=== PATIENT | female | born 1990 | race Caucasian/White ===

== ENCOUNTER 2016-08-21 14:31 | Emergency (ER) | payer OTHER ==
[~2016-08-21] VITALS: Ht 160 cm; Wt 59.0 kg
[~2016-08-21 14:31] MED LIST: ALBUTEROL0.09 MG/A2 INH; AMOXICILLIN500 MG PO; ANAPROX DS550 MG PO; ANTIVERT25 MG PO; ANUSOL-HC25 MG R; ATARAX,VISTARIL50 MG PO; BACTRIM DS 8001 TA1 PO; BENADRYL25 MG PO; BENTYL10 MG PO; CIPRO250 MG PO; CIPRO500 MG PO; CLEOCIN HCL150 MG PO; CLEOCIN150 MG PO; COMPAZINE10 MG PO; FLAGYL250 MG PO; HYDROCODONE BIT1 T11 PO; HYDROXYZINE HCL25 MG PO; LIDEX 0.05% CRE15 GM T; MACROBID100 M1 PO; MEDROL DOSEPAK4 MG PO; MOTRIN800 MG PO; Motrin,Rufen800 MG PO; NAPROSYN500 MG PO; NATURE'S BLEN2000 IU PO; NKHM; NKHM PO; NORCO 325 MG-101 TAB PO; PERCOCET 325 MG1 TA2 PO; PERCOCET 325 MG1 TA5 PO; PERCOCET 325 MG1 TA6 PO; PREDNICOT20 MG PO; PREDNISONE20 M1 PO; PRENATAL1 TA2 PO; ROBITUSSIN AC 110 ML PO; SEPTRA DS 800 M1 TAB PO; SERTRALINE HYDR50 MG PO; TRAMADOL HCL50 MG PO; ULTRAM50 MG PO; VIBRAMYCIN100 MG PO; VICODIN 5/500 505 MG PO; ZITHROMAX Z PA250 MG PO; ZITHROMAX250 MG PO; ZOFRAN ODT4 MG SL; ZOLOFT50 MG PO; Zofran4 MG PO
[2016-08-21] MEDS ORDERED: BACTRIM DS 8001 TA1 PO (15:33)
== END 2016-08-21 16:55 | disposition home or self-care (01) ==
LOC: ED 14:31
DX: N63 Unspecified lump in breast (principal); N64.4 Mastodynia; F17.200 Nicotine dependence, unspecified, uncomplicated; Z90.49 Acquired absence of other specified parts of digestive tract; Z88.1 Allergy status to other antibiotic agents

== ENCOUNTER → 2016-10-01 | Outpatient (CLI) | payer OTHER | END | disposition home or self-care (01) | LOC: RAD 11:21 | DX: M54.5 Low back pain (principal); R20.0 Anesthesia of skin; Z98.51 Tubal ligation status ==

== ENCOUNTER → 2016-10-20 | Outpatient (CLI) | payer OTHER | END | disposition home or self-care (01) | LOC: MAMMO 10-07 09:00 | DX: N63 Unspecified lump in breast (principal) ==

== ENCOUNTER 2016-11-11 12:07 | Emergency (ER) | payer OTHER ==
[~2016-11-11] VITALS: Wt 59.0 kg
[2016-11-11 13:00] LABS: BASO % 0.4 % (0.0-1.0); EOS # 0.1 10*3/uL (0.0-0.4); EOS % 1.1 % (1.0-4.0); HEMATOCRIT 39.1 % (37.0-47.0); HEMOGLOBIN 13.1 g/dl (12.0-16.0); LYMPH # 2.5 10*3/uL (1.3-4.4); LYMPH % 26.7 % (27.0-41.0); MEAN CELL VOLUME 95.1 fl (81.0-99.0); MEAN CORPUSCULAR HGB 31.9 pg (27.0-31.0); MEAN CORPUSCULAR HGB CONC 33.5 g/dl (33.0-37.0); MEAN PLATELET VOLUME 9.9 fl (9.6-12.3); MONO # 0.8 10*3/uL (0.1-1.0); MONO % 8.8 % (3.0-9.0); NEUT # 5.9 10*3/uL (2.3-7.9); NEUT % 62.8 % (47.0-73.0); PLATELET COUNT AUTOMATED 322 10*3/uL (130-400); RED BLOOD COUNT 4.11 10*6/uL (4.10-5.10); RED CELL DISTRI WIDTH 11.9 % (0-14.5); WHITE BLOOD COUNT 9.3 10*3/uL (4.8-10.8)
[2016-11-11 13:09] LABS: PROTHROMBIN TIME 10.1 SECONDS (9.0-12.4)
[2016-11-11 13:16] LABS: C-REACTIVE PROTEIN < 0.29 MG/DL (0-0.3)
[2016-11-11 13:17] LABS: ALBUMIN 3.8 gm/dl (3.1-4.5); ALKALINE PHOSPHATASE 55 U/L (45-117); BILIRUBIN, TOTAL 0.5 mg/dl (0.2-1.0); BUN 8 mg/dl (7-24); CARBON DIOXIDE 27 mmol/L (21-32); CHLORIDE 104 mmol/L (98-107); EST GLOM FILT AFRICAN AMERICAN > 60 ml/min; GLUCOSE 86 mg/dL (65-99); MAGNESIUM 2.2 mg/dL (1.5-2.1); POTASSIUM 4.1 mmol/L (3.5-5.1); SGOT/AST 13 IU/L (3-35); SGPT/ALT 22 U/L (12-78); SODIUM 138 mmol/L (136-145); TOTAL PROTEIN 7.3 gm/dL (6.4-8.2)
[2016-11-11 13:24] LABS: TROPONIN I < 0.015 ng/ml (<0.045)
[2016-11-11 13:47] LABS: BILIRUBIN NEGATIVE (NEGATIVE); BLOOD NEGATIVE (NEGATIVE); CLARITY CLEAR (CLEAR); COLOR YELLOW (YELLOW); GLUCOSE NEGATIVE (NEGATIVE); KETONE NEGATIVE (NEGATIVE); LEUKO ESTERASE NEGATIVE (NEGATIVE); NITRITE NEGATIVE (NEGATIVE); PH 6.5 (5.0-9.0); PROTEIN NEGATIVE (NEGATIVE); SPECIFIC GRAVITY <= 1.005 (1.005-1.030); UROBILINOGEN 0.2 E.U./dl (0.2-1.0)
[2016-11-11 13:53] LABS: EPITHELIAL CELLS 0-2; URINE REFLEX COMMENT NO (NO)
== END 2016-11-11 15:37 | disposition left against medical advice (07) ==
LOC: ED 12:07
PROVIDERS: Student in an Organized Health Care Education/Training Program
DX: R10.13 Epigastric pain (principal); F17.200 Nicotine dependence, unspecified, uncomplicated; Z88.8 Allergy status to other drugs, medicaments and biological substances

== ENCOUNTER → 2016-11-18 | Day surgery (SDC) | payer OTHER | END | disposition home or self-care (01) | LOC: SDC 11-12 11:00 → US 11-12 11:00 → RAD 11-12 11:00 → SDC 03:07 | DX: D24.2 Benign neoplasm of left breast (principal); Z90.49 Acquired absence of other specified parts of digestive tract; Z98.51 Tubal ligation status; Z98.890 Other specified postprocedural states; Z80.0 Family history of malignant neoplasm of digestive organs; F17.210 Nicotine dependence, cigarettes, uncomplicated; Z80.3 Family history of malignant neoplasm of breast; Z88.8 Allergy status to other drugs, medicaments and biological substances ==

== ENCOUNTER → 2016-12-11 | Outpatient (CLI) | payer OTHER ==
[2016-12-11 09:53] LABS: BASO % 0.5 % (0.0-1.0); BILIRUBIN NEGATIVE (NEGATIVE); BLOOD TRACE-INTACT (NEGATIVE); CLARITY CLEAR (CLEAR); COLOR YELLOW (YELLOW); EOS # 0.1 10*3/uL (0.0-0.4); EOS % 1.6 % (1.0-4.0); GLUCOSE NEGATIVE (NEGATIVE); HEMATOCRIT 40.2 % (37.0-47.0); HEMOGLOBIN 13.5 g/dl (12.0-16.0); KETONE NEGATIVE (NEGATIVE); LEUKO ESTERASE NEGATIVE (NEGATIVE); LYMPH # 2.2 10*3/uL (1.3-4.4); LYMPH % 24.7 % (27.0-41.0); MEAN CELL VOLUME 98.3 fl (81.0-99.0); MEAN CORPUSCULAR HGB CONC 33.6 g/dl (33.0-37.0); MEAN PLATELET VOLUME 10.5 fl (9.6-12.3); MONO # 0.7 10*3/uL (0.1-1.0); MONO % 8.4 % (3.0-9.0); NEUT # 5.6 10*3/uL (2.3-7.9); NEUT % 64.5 % (47.0-73.0); NITRITE NEGATIVE (NEGATIVE); PLATELET COUNT AUTOMATED 360 10*3/uL (130-400); RED BLOOD COUNT 4.09 10*6/uL (4.10-5.10); RED CELL DISTRI WIDTH 12.2 % (0-14.5); UROBILINOGEN 0.2 E.U./dl (0.2-1.0); WHITE BLOOD COUNT 8.7 10*3/uL (4.8-10.8)
[2016-12-11 10:01] LABS: EPITHELIAL CELLS 16-20; MUCOUS TRACE; RBC 0-2 rbc/hpf (0-2); WBC 0-2 wbc/hpf (0-5)
[2016-12-11 10:17] LABS: INTERNATIONAL NORM RATIO 0.9 (2.0-3.5)
[2016-12-11 10:19] LABS: BUN 12 mg/dl (7-24); CHLORIDE 106 mmol/L (98-107); CREATININE 0.76 mg/dL (0.55-1.02); POTASSIUM 4.1 mmol/L (3.5-5.1); SODIUM 138 mmol/L (136-145)
== END | disposition home or self-care (01) ==
LOC: LAB 08:33
PROVIDERS: Surgery
DX: N63 Unspecified lump in breast (principal); R79.1 Abnormal coagulation profile

== ENCOUNTER → 2016-12-17 | Day surgery (SDC) | payer OTHER ==
[2016-12-11 08:47] VITALS: BP 104/62
[~2016-12-17] VITALS: Ht 160 cm; Wt 65.8 kg
[~2016-12-17] MED LIST changes: +PERCOCET 5-3251 EACH PO
--- NOTE | ~2016-12-17 | O ---
[place], [place] OPERATIVE NOTE NAME: RAMONA MARK UNIT #: [id number] ROOM: DOCTOR: BART SLATER MD BIRTHDATE: [birth year] DOS: 12/17/2016 PREOPERATIVE DIAGNOSIS: Left breast mass. POSTOPERATIVE DIAGNOSIS: Left breast mass. PROCEDURE: Excision of left breast mass. SURGEON: Bart Slater MD ARMAMENT INSTALLER: MS3. ANESTHESIA: MAC. INDICATIONS: This is a 26-year-old lady with a history of left breast mass at approximately 9 o'clock position who is here for the above-mentioned procedure. The procedure and its complications were explained to the patient in detail preoperatively. Complications that were discussed included, but were not limited to bleeding, infection, hematoma/seroma/abscess formation, prolonged postoperative pain and damage to underlying vital structures. She agreed to proceed. DESCRIPTION OF PROCEDURE: After identifying the patient, the patient was brought to the operating suite and laid in the supine position. After IV sedation was administered, the parts were then painted and draped in the usual sterile fashion and a timeout procedure was called. An incision in the left circumareolar fashion was marked overlying the previous biopsy site, local anesthesia (1% plain lidocaine) were injected over the marked incision. Incision was made with the help of knife and deepened in layers. With tissue around the mass was grasped with the help of an Allis forceps and with the help of electrocautery that was circumferential dissected from the surrounding breast tissue. It was then removed and oriented (short stitch for superior and long stitch for lateral) and sent for histopathological diagnosis. Hemostasis was achieved with the help of electrocautery and saline was used for irrigation. Thereafter, the subcutaneous tissue was approximated with the help of 3-0 Vicryl in a running fashion and the skin edges were approximated with 4-0 Vicryl in a subcuticular running fashion. Dressing was placed. The patient tolerated the procedure well and was taken to the recovery room in stable fashion. There were no complications. Dr. Bart Slater, the attending surgeon, was present throughout the operating case. [place], [place] OPERATIVE NOTE NAME: RAMONA MARK UNIT #: [id number] ROOM: DOCTOR: BART SLATER MD BIRTHDATE: [birth year] Bart Slater MD CM:[facility]:OPERATIVE NOTE 1 07 ABRT SLATER MD 12/17/16 1008 interface
[2016-12-17 08:08] VITALS: BP 110/67
[2016-12-17 08:57] VITALS: BP 88/52
[2016-12-17 09:10] VITALS: BP 95/54
[2016-12-17 09:30] VITALS: BP 104/68
== END | disposition home or self-care (01) ==
LOC: SDC 12-10 11:00
DX: D24.2 Benign neoplasm of left breast (principal); F17.210 Nicotine dependence, cigarettes, uncomplicated; Z98.51 Tubal ligation status; Z90.49 Acquired absence of other specified parts of digestive tract; Z98.890 Other specified postprocedural states; Z80.9 Family history of malignant neoplasm, unspecified

== ENCOUNTER 2017-04-14 11:30 | Emergency (ER) | payer OTHER ==
[~2017-04-14] VITALS: Wt 63.5 kg
[2017-04-14] MEDS ORDERED: MEDROXYPROGESTE10 M1 PO (11:37)
[2017-04-14 11:55] LABS: BASO % 0.4 % (0.0-1.0); EOS # 0.1 10*3/uL (0.0-0.4); EOS % 0.9 % (1.0-4.0); HEMATOCRIT 41.8 % (37.0-47.0); LYMPH # 2.1 10*3/uL (1.3-4.4); LYMPH % 24.3 % (27.0-41.0); MEAN CELL VOLUME 96.3 fl (81.0-99.0); MEAN CORPUSCULAR HGB 32.3 pg (27.0-31.0); MEAN CORPUSCULAR HGB CONC 33.5 g/dl (33.0-37.0); MEAN PLATELET VOLUME 10.1 fl (9.6-12.3); MONO # 0.5 10*3/uL (0.1-1.0); MONO % 5.9 % (3.0-9.0); NEUT # 5.8 10*3/uL (2.3-7.9); NEUT % 68.1 % (47.0-73.0); PLATELET COUNT AUTOMATED 372 10*3/uL (130-400); RED BLOOD COUNT 4.34 10*6/uL (4.10-5.10); RED CELL DISTRI WIDTH 11.8 % (0-14.5); WHITE BLOOD COUNT 8.5 10*3/uL (4.8-10.8)
[2017-04-14 12:06] LABS: BILIRUBIN NEGATIVE (NEGATIVE); BLOOD NEGATIVE (NEGATIVE); CLARITY SL CLOUDY (CLEAR); COLOR YELLOW (YELLOW); GLUCOSE NEGATIVE (NEGATIVE); KETONE NEGATIVE (NEGATIVE); LEUKO ESTERASE NEGATIVE (NEGATIVE); NITRITE NEGATIVE (NEGATIVE); PH 7.5 (5.0-9.0); UROBILINOGEN 0.2 E.U./dl (0.2-1.0)
[2017-04-14 12:10] LABS: ALBUMIN 4.3 gm/dl (3.1-4.5); ALKALINE PHOSPHATASE 59 U/L (45-117); BUN 7 mg/dl (7-24); CHLORIDE 104 mmol/L (98-107); CREATININE 0.82 mg/dL (0.55-1.02); POTASSIUM 3.8 mmol/L (3.5-5.1); SGOT/AST 14 IU/L (3-35); SGPT/ALT 20 U/L (12-78); SODIUM 140 mmol/L (136-145)
[2017-04-14 12:22] LABS: BACTERIA 1+; WBC 0-2 wbc/hpf (0-5)
== END 2017-04-14 14:14 | disposition home or self-care (01) ==
LOC: ED 11:30
PROVIDERS: Nurse Practitioner Family
DX: R10.31 Right lower quadrant pain (principal); F17.200 Nicotine dependence, unspecified, uncomplicated; Z98.51 Tubal ligation status; Z88.1 Allergy status to other antibiotic agents; Z88.5 Allergy status to narcotic agent; Z88.6 Allergy status to analgesic agent

== ENCOUNTER 2017-06-27 20:17 | Emergency (ER) | payer OTHER ==
[~2017-06-27] VITALS: Ht 160 cm; Wt 68.0 kg
[~2017-06-27 20:17] MED LIST changes: +MEDROXYPROGESTE10 M1 PO
[2017-06-27] MEDS ORDERED: CYCLOBENZAPRINE10 MG PO (22:07)
[2017-06-27] MEDS ORDERED: MEDROL DOSEPAK4 MG PO (22:07)
[2017-06-27] MEDS ORDERED: NAPROSYN500 MG PO (22:07)
== END 2017-06-27 22:15 | disposition home or self-care (01) ==
LOC: ED 20:17
DX: S16.1XXA Strain of muscle, fascia and tendon at neck level, initial encounter (principal); S00.83XA Contusion of other part of head, initial encounter; S05.12XA Contusion of eyeball and orbital tissues, left eye, initial encounter; S05.11XA Contusion of eyeball and orbital tissues, right eye, initial encounter; F17.200 Nicotine dependence, unspecified, uncomplicated; Z88.1 Allergy status to other antibiotic agents; Z88.6 Allergy status to analgesic agent; V00.131A Fall from skateboard, initial encounter; Y93.51 Activity, roller skating (inline) and skateboarding; Y92.89 Other specified places as the place of occurrence of the external cause; Y99.8 Other external cause status

== ENCOUNTER 2017-07-25 10:45 | Emergency (ER) | payer OTHER ==
[~2017-07-25] VITALS: Ht 160 cm; Wt 68.0 kg
[~2017-07-25 10:45] MED LIST changes: +CYCLOBENZAPRINE10 MG PO
[2017-07-25] MEDS ORDERED: CILOXAN 5 ML5 ML OPH (11:46)
== END 2017-07-25 11:48 | disposition home or self-care (01) ==
LOC: ED 10:45
DX: H10.89 Other conjunctivitis (principal); B96.89 Other specified bacterial agents as the cause of diseases classified elsewhere; Z98.51 Tubal ligation status; Z98.890 Other specified postprocedural states; Z88.1 Allergy status to other antibiotic agents; Z88.6 Allergy status to analgesic agent; Z88.5 Allergy status to narcotic agent

== ENCOUNTER 2017-09-24 17:50 | Emergency (ER) | payer OTHER ==
[~2017-09-24] VITALS: Wt 63.5 kg
[~2017-09-24 17:50] MED LIST changes: +CILOXAN 5 ML5 ML OPH
[2017-09-24 18:24] LABS: BASO % 0.3 % (0.0-1.0); EOS # 0.1 10*3/uL (0.0-0.4); EOS % 0.4 % (1.0-4.0); HEMATOCRIT 37.1 % (37.0-47.0); HEMOGLOBIN 12.8 g/dl (12.0-16.0); LYMPH # 2.6 10*3/uL (1.3-4.4); LYMPH % 21.3 % (27.0-41.0); MEAN CELL VOLUME 94.4 fl (81.0-99.0); MEAN CORPUSCULAR HGB 32.6 pg (27.0-31.0); MEAN CORPUSCULAR HGB CONC 34.5 g/dl (33.0-37.0); MEAN PLATELET VOLUME 10.4 fl (9.6-12.3); MONO # 1.2 10*3/uL (0.1-1.0); MONO % 9.5 % (3.0-9.0); NEUT # 8.4 10*3/uL (2.3-7.9); NEUT % 68.3 % (47.0-73.0); PLATELET COUNT AUTOMATED 356 10*3/uL (130-400); RED BLOOD COUNT 3.93 10*6/uL (4.10-5.10); RED CELL DISTRI WIDTH 11.5 % (0-14.5); WHITE BLOOD COUNT 12.4 10*3/uL (4.8-10.8)
[2017-09-24 18:36] LABS: ACT PARTIAL THROMBO TIME 24.9 SECONDS (20.8-31.5)
[2017-09-24 18:40] LABS: ALBUMIN 4.1 gm/dl (3.1-4.5); ALKALINE PHOSPHATASE 63 U/L (45-117); BUN 12 mg/dl (7-24); CHLORIDE 108 mmol/L (98-107); CREATININE 0.82 mg/dL (0.55-1.02); POTASSIUM 3.6 mmol/L (3.5-5.1); SGOT/AST 13 IU/L (3-35); SGPT/ALT 18 U/L (12-78); SODIUM 139 mmol/L (136-145); TOTAL PROTEIN 7.3 gm/dL (6.4-8.2)
[2017-09-24 19:58] LABS: BILIRUBIN NEGATIVE (NEGATIVE); CLARITY SL CLOUDY (CLEAR); COLOR YELLOW (YELLOW); GLUCOSE NEGATIVE (NEGATIVE); KETONE NEGATIVE (NEGATIVE)
[2017-09-24 19:59] LABS: BLOOD NEGATIVE (NEGATIVE); UROBILINOGEN 0.2 E.U./dl (0.2-1.0)
[2017-09-24 20:00] LABS: LEUKO ESTERASE TRACE (NEGATIVE); NITRITE NEGATIVE (NEGATIVE)
[2017-09-24 20:05] LABS: BACTERIA 1+; EPITHELIAL CELLS TNTC; MUCOUS TRACE; RBC 0-2 rbc/hpf (0-2)
[2017-09-24] MEDS ORDERED: CARAFATE1 G1 PO (20:25)
[2017-09-24] MEDS ORDERED: ZANTAC 150150 MG PO (20:25)
[2017-09-24] MEDS ORDERED: ZOFRAN4 MG PO (20:25)
[2017-09-24] MEDS ORDERED: DICYCLOMINE HCL10 MG PO (20:25)
== END 2017-09-24 21:11 | disposition home or self-care (01) ==
LOC: ED 17:50
PROVIDERS: Nurse Practitioner Family
DX: R10.84 Generalized abdominal pain (principal); Z88.5 Allergy status to narcotic agent; G47.00 Insomnia, unspecified

== ENCOUNTER 2017-11-14 12:13 | Emergency (ER) | payer OTHER ==
[~2017-11-14] VITALS: Ht 160 cm; Wt 61.2 kg
[~2017-11-14 12:13] MED LIST changes: +CARAFATE1 G1 PO; +DICYCLOMINE HCL10 MG PO; +ZANTAC 150150 MG PO; +ZOFRAN4 MG PO
[2017-11-14] MEDS ORDERED: Motrin,Rufen800 MG PO (15:25)
== END 2017-11-14 15:27 | disposition home or self-care (01) ==
LOC: ED 12:13
DX: S40.022A Contusion of left upper arm, initial encounter (principal); M54.5 Low back pain; F17.200 Nicotine dependence, unspecified, uncomplicated; Z88.1 Allergy status to other antibiotic agents; Z88.6 Allergy status to analgesic agent; Y04.0XXA Assault by unarmed brawl or fight, initial encounter; Y93.89 Activity, other specified; Y92.89 Other specified places as the place of occurrence of the external cause; Y99.8 Other external cause status

== ENCOUNTER → 2018-03-23 | Outpatient (CLI) | payer OTHER | END | disposition home or self-care (01) | LOC: MAMMO 12:32 | DX: N63.32 Unspecified lump in axillary tail of the left breast (principal); N63.22 Unspecified lump in the left breast, upper inner quadrant; N63.21 Unspecified lump in the left breast, upper outer quadrant ==

== ENCOUNTER 2018-12-28 17:07 | Emergency (ER) | payer OTHER ==
[~2018-12-28] VITALS: Ht 160 cm; Wt 65.8 kg
[~2018-12-28 17:07] MED LIST changes: +CYCLOBENZAPRINE5 M3 PO
[2018-12-28] MEDS ORDERED: FLONASE ALLERG9.9 ML NAS (18:20)
[2018-12-28] MEDS ORDERED: ZYRTEC10 MG PO (18:20)
[2018-12-28] MEDS ORDERED: ZITHROMAX250 MG PO (18:20)
== END 2018-12-28 18:24 | disposition home or self-care (01) ==
LOC: ED 17:07
DX: J01.90 Acute sinusitis, unspecified (principal); H92.03 Otalgia, bilateral; Z88.1 Allergy status to other antibiotic agents; Z88.6 Allergy status to analgesic agent; Z79.899 Other long term (current) drug therapy; Z79.2 Long term (current) use of antibiotics; Z90.49 Acquired absence of other specified parts of digestive tract

== ENCOUNTER 2019-05-09 18:29 | Emergency (ER) | payer OTHER ==
[~2019-05-09] VITALS: Ht 160 cm; Wt 59.0 kg
[~2019-05-09 18:29] MED LIST changes: +FLONASE ALLERG9.9 ML NAS; +ZYRTEC10 MG PO
[2019-05-09 19:03] LABS: BASO # 0.1 10*3/uL (0.0-0.1); BASO % 0.6 % (0.0-1.0); EOS % 0.4 % (1.0-4.0); HEMATOCRIT 40.4 % (37.0-47.0); HEMOGLOBIN 13.4 g/dl (12.0-16.0); LYMPH % 32.3 % (27.0-41.0); MEAN CELL VOLUME 95.7 fl (81.0-99.0); MEAN CORPUSCULAR HGB 31.8 pg (27.0-31.0); MEAN CORPUSCULAR HGB CONC 33.2 g/dl (33.0-37.0); MEAN PLATELET VOLUME 10.3 fl (9.6-12.3); MONO # 0.9 10*3/uL (0.1-1.0); MONO % 9.6 % (3.0-9.0); NEUT # 5.3 10*3/uL (2.3-7.9); NEUT % 56.9 % (47.0-73.0); PLATELET COUNT AUTOMATED 315 10*3/uL (130-400); RED BLOOD COUNT 4.22 10*6/uL (4.10-5.10); RED CELL DISTRI WIDTH 11.9 % (0-14.5); WHITE BLOOD COUNT 9.3 10*3/uL (4.8-10.8)
[2019-05-09 19:12] LABS: BILIRUBIN NEGATIVE (NEGATIVE); BLOOD NEGATIVE (NEGATIVE); CLARITY CLEAR (CLEAR); COLOR YELLOW (YELLOW); GLUCOSE NEGATIVE (NEGATIVE); KETONE NEGATIVE (NEGATIVE); LEUKO ESTERASE NEGATIVE (NEGATIVE); NITRITE NEGATIVE (NEGATIVE); PH 7.5 (5.0-9.0); UROBILINOGEN 0.2 E.U./dl (0.2-1.0)
[2019-05-09 19:13] LABS: BACTERIA TRACE
[2019-05-09 19:17] LABS: ALBUMIN 3.8 gm/dl (3.1-4.5); ALKALINE PHOSPHATASE 56 U/L (45-117); BUN 10 mg/dl (7-24); CHLORIDE 108 mmol/L (98-107); CREATININE 0.83 mg/dL (0.55-1.02); LIPASE 80 U/L (73-393); SGOT/AST 13 IU/L (3-35); SGPT/ALT 19 U/L (12-78); SODIUM 140 mmol/L (136-145); TOTAL PROTEIN 7.4 gm/dL (6.4-8.2)
[2019-05-09 19:19] LABS: B-hCG (QUALITATIVE) NEGATIVE (NEGATIVE)
== END 2019-05-09 20:03 | disposition home or self-care (01) ==
LOC: ED 18:29
PROVIDERS: Physician Assistant
DX: R11.0 Nausea (principal); F17.200 Nicotine dependence, unspecified, uncomplicated; Z88.1 Allergy status to other antibiotic agents; Z88.6 Allergy status to analgesic agent; Z79.899 Other long term (current) drug therapy; Z79.2 Long term (current) use of antibiotics; Z90.49 Acquired absence of other specified parts of digestive tract; Z98.51 Tubal ligation status

== ENCOUNTER 2019-05-11 03:45 | Emergency (ER) | payer OTHER ==
[~2019-05-11] VITALS: Ht 160 cm; Wt 68.0 kg
[2019-05-11 04:22] LABS: BASO # 0.1 10*3/uL (0.0-0.1); BASO % 0.4 % (0.0-1.0); EOS % 0.3 % (1.0-4.0); LYMPH % 34.6 % (27.0-41.0); MEAN CELL VOLUME 94.1 fl (81.0-99.0); MEAN CORPUSCULAR HGB 32.2 pg (27.0-31.0); MEAN CORPUSCULAR HGB CONC 34.2 g/dl (33.0-37.0); MEAN PLATELET VOLUME 10.1 fl (9.6-12.3); MONO % 8.6 % (3.0-9.0); NEUT # 6.4 10*3/uL (2.3-7.9); NEUT % 55.9 % (47.0-73.0); PLATELET COUNT AUTOMATED 329 10*3/uL (130-400); RED BLOOD COUNT 4.04 10*6/uL (4.10-5.10); RED CELL DISTRI WIDTH 11.7 % (0-14.5); WHITE BLOOD COUNT 11.5 10*3/uL (4.8-10.8)
[2019-05-11 04:32] LABS: BUN 11 mg/dl (7-24); CHLORIDE 107 mmol/L (98-107); CREATININE 0.84 mg/dL (0.55-1.02); POTASSIUM 3.6 mmol/L (3.5-5.1); SODIUM 140 mmol/L (136-145)
[2019-05-11 05:22] LABS: BILIRUBIN NEGATIVE (NEGATIVE); BLOOD NEGATIVE (NEGATIVE); CLARITY CLEAR (CLEAR); COLOR YELLOW (YELLOW); GLUCOSE NEGATIVE (NEGATIVE); KETONE NEGATIVE (NEGATIVE); LEUKO ESTERASE NEGATIVE (NEGATIVE); NITRITE NEGATIVE (NEGATIVE); UROBILINOGEN 0.2 E.U./dl (0.2-1.0)
[2019-05-11 05:29] LABS: EPITHELIAL CELLS 20-25; WBC 0-2 wbc/hpf (0-5)
[2019-05-11] MEDS ORDERED: Motrin,Rufen800 MG PO (09:04)
== END 2019-05-11 09:08 | disposition home or self-care (01) ==
LOC: ED 03:45
PROVIDERS: Emergency Medicine
DX: R10.32 Left lower quadrant pain (principal); Z88.1 Allergy status to other antibiotic agents; Z88.6 Allergy status to analgesic agent

== ENCOUNTER → 2019-12-12 | Outpatient (CLI) | payer OTHER | END | disposition home or self-care (01) | LOC: MAMMO 11-23 13:00 | PROVIDERS: ATTEND Obstetrics & Gynecology Obstetrics | DX: N63.25 Unspecified lump in the left breast, overlapping quadrants (principal) ==

== ENCOUNTER 2020-01-27 14:43 | Emergency (ER) | payer OTHER ==
[~2020-01-27] VITALS: Ht 160 cm; Wt 65.8 kg
[2020-01-27 15:43] LABS: BILIRUBIN Negative (Negative); BLOOD Negative (Negative); CLARITY Clear (Clear); COLOR Yellow (Yellow); GLUCOSE Negative (Negative); KETONE Negative (Negative); LEUKO ESTERASE Negative (Negative); NITRITE Negative (Negative); PH 7.5 (4.5-8.0); SPECIFIC GRAVITY <= 1.005 (1.001-1.030); UROBILINOGEN 0.2 E.U./dl (0.0-1.0)
[2020-01-27 16:04] LABS: WBC 0-2 wbc/hpf (0-5)
== END 2020-01-27 17:33 | disposition home or self-care (01) ==
LOC: ED 14:43
PROVIDERS: Nurse Practitioner Family
DX: T14.8XXA Other injury of unspecified body region, initial encounter (principal); Z88.8 Allergy status to other drugs, medicaments and biological substances; Z79.899 Other long term (current) drug therapy; V89.2XXA Person injured in unspecified motor-vehicle accident, traffic, initial encounter; Y93.89 Activity, other specified; Y92.89 Other specified places as the place of occurrence of the external cause; Y99.8 Other external cause status

== ENCOUNTER 2020-02-16 09:07 | Emergency (ER) | payer OTHER ==
[2020-02-16 09:43] LABS: BASO # 0.1 10*3/uL (0.0-0.1); BASO % 0.6 % (0.0-1.0); EOS # 0.1 10*3/uL (0.0-0.4); EOS % 0.9 % (1.0-4.0); HEMATOCRIT 42.5 % (37.0-47.0); LYMPH # 1.8 10*3/uL (1.3-4.4); LYMPH % 20.2 % (27.0-41.0); MEAN CELL VOLUME 94.7 fl (81.0-99.0); MEAN CORPUSCULAR HGB CONC 32.7 g/dl (33.0-37.0); MEAN PLATELET VOLUME 10.2 fl (9.6-12.3); MONO # 0.8 10*3/uL (0.1-1.0); NEUT # 6.1 10*3/uL (2.3-7.9); NEUT % 69.1 % (47.0-73.0); PLATELET COUNT AUTOMATED 391 10*3/uL (130-400); RED BLOOD COUNT 4.49 10*6/uL (4.10-5.10); RED CELL DISTRI WIDTH 11.7 % (0-14.5); WHITE BLOOD COUNT 8.9 10*3/uL (4.8-10.8)
[2020-02-16 09:57] LABS: ALBUMIN 4.1 gm/dl (3.1-4.5); ALKALINE PHOSPHATASE 53 U/L (45-117); BUN 10 mg/dl (7-24); CHLORIDE 107 mmol/L (98-107); POTASSIUM 4.1 mmol/L (3.5-5.1); SGOT/AST 13 IU/L (3-35); SGPT/ALT 16 U/L (12-78); SODIUM 139 mmol/L (136-145); TOTAL PROTEIN 7.6 gm/dL (6.4-8.2)
== END 2020-02-16 10:17 | disposition home or self-care (01) ==
LOC: ED 09:07
PROVIDERS: Student in an Organized Health Care Education/Training Program
DX: K52.9 Noninfective gastroenteritis and colitis, unspecified (principal); F17.200 Nicotine dependence, unspecified, uncomplicated; Z88.8 Allergy status to other drugs, medicaments and biological substances; Z79.899 Other long term (current) drug therapy

== ENCOUNTER → 2020-02-29 | Outpatient (CLI) | payer OTHER | END | disposition home or self-care (01) | LOC: COVID19 08:29 | PROVIDERS: ATTEND Internal Medicine | DX: Z20.828 Contact with and (suspected) exposure to other viral communicable diseases (principal) ==

== ENCOUNTER 2020-03-03 11:25 | Emergency (ER) | payer OTHER ==
[~2020-03-03] VITALS: Ht 160 cm; Wt 65.8 kg
== END 2020-03-03 14:08 | disposition home or self-care (01) ==
LOC: ED 11:25
DX: R51.9 Headache, unspecified (principal); Z20.828 Contact with and (suspected) exposure to other viral communicable diseases; J02.9 Acute pharyngitis, unspecified; R07.9 Chest pain, unspecified; F17.200 Nicotine dependence, unspecified, uncomplicated; Z88.1 Allergy status to other antibiotic agents; Z88.6 Allergy status to analgesic agent

== ENCOUNTER 2020-03-25 09:52 | Emergency (ER) | payer OTHER ==
[~2020-03-25] VITALS: Ht 160 cm; Wt 68.0 kg
[2020-03-25] MEDS ORDERED: Motrin,Rufen800 MG PO (11:03)
== END 2020-03-25 11:07 | disposition home or self-care (01) ==
LOC: ED 09:52
DX: N64.4 Mastodynia (principal); Z88.1 Allergy status to other antibiotic agents; Z88.6 Allergy status to analgesic agent

== ENCOUNTER 2020-07-29 08:02 | Emergency (ER) | payer OTHER ==
[~2020-07-29] VITALS: Ht 160 cm; Wt 70.3 kg
[2020-07-29 08:56] LABS: BASO # 0.1 10*3/uL (0.0-0.1); BASO % 0.5 % (0.0-1.0); EOS # 0.1 10*3/uL (0.0-0.4); EOS % 1.4 % (1.0-4.0); HEMATOCRIT 41.3 % (37.0-47.0); LYMPH % 21.2 % (27.0-41.0); MEAN CELL VOLUME 98.1 fl (81.0-99.0); MEAN CORPUSCULAR HGB 32.8 pg (27.0-31.0); MEAN CORPUSCULAR HGB CONC 33.4 g/dl (33.0-37.0); MEAN PLATELET VOLUME 9.5 fl (9.6-12.3); MONO # 0.8 10*3/uL (0.1-1.0); MONO % 8.6 % (3.0-9.0); NEUT # 6.5 10*3/uL (2.3-7.9); NEUT % 67.9 % (47.0-73.0); PLATELET COUNT AUTOMATED 393 10*3/uL (130-400); RED BLOOD COUNT 4.21 10*6/uL (4.10-5.10); RED CELL DISTRI WIDTH 11.8 % (0-14.5); WHITE BLOOD COUNT 9.6 10*3/uL (4.8-10.8)
[2020-07-29 09:12] LABS: ACT PARTIAL THROMBO TIME 29.5 SECONDS (20.0-32.1); INTERNATIONAL NORM RATIO 0.9 (2.0-3.5)
[2020-07-29 09:16] LABS: ALBUMIN 3.8 gm/dl (3.1-4.5); ALKALINE PHOSPHATASE 65 U/L (45-117); BUN 14 mg/dl (7-24); CHLORIDE 107 mmol/L (98-107); CREATININE 0.87 mg/dL (0.55-1.02); LIPASE 67 U/L (73-393); SGOT/AST 11 IU/L (3-35); SGPT/ALT 20 U/L (12-78); SODIUM 138 mmol/L (136-145); TOTAL PROTEIN 7.2 gm/dL (6.4-8.2)
[2020-07-29 09:17] LABS: BETA-HCG, QUANT < 1.0 mIU/mL (1-3); TROPONIN I < 0.015 ng/ml (<0.045)
== END 2020-07-29 10:30 | disposition home or self-care (01) ==
LOC: ED 08:02
PROVIDERS: Emergency Medicine
DX: R07.89 Other chest pain (principal); Z88.6 Allergy status to analgesic agent; Z88.8 Allergy status to other drugs, medicaments and biological substances; Z79.899 Other long term (current) drug therapy; Z98.890 Other specified postprocedural states; Z98.51 Tubal ligation status

== ENCOUNTER 2020-08-11 20:15 | Emergency (ER) | payer OTHER ==
[2020-08-12] MEDS ORDERED: SEPTDS PO ×2 (01:35→12:21)
== END 2020-08-12 02:12 | disposition home or self-care (01) ==
LOC: ED 20:15
DX: S81.011A Laceration without foreign body, right knee, initial encounter (principal); Z79.2 Long term (current) use of antibiotics; Z88.1 Allergy status to other antibiotic agents; Z88.6 Allergy status to analgesic agent; Z79.899 Other long term (current) drug therapy; Z90.49 Acquired absence of other specified parts of digestive tract; Z98.51 Tubal ligation status; W18.39XA Other fall on same level, initial encounter; Y93.01 Activity, walking, marching and hiking; Y92.410 Unspecified street and highway as the place of occurrence of the external cause; Y99.8 Other external cause status

== ENCOUNTER 2020-12-06 10:17 | Emergency (ER) | payer OTHER ==
[~2020-12-06] VITALS: Ht 162.5 cm; Wt 72.6 kg
[~2020-12-06 10:17] MED LIST changes: +SEPTDS PO
[2020-12-06] MEDS ORDERED: DOXYCYCLINE100 M3 PO (10:53)
== END 2020-12-06 11:02 | disposition home or self-care (01) ==
LOC: ED 10:17
DX: J32.9 Chronic sinusitis, unspecified (principal); Z88.1 Allergy status to other antibiotic agents; Z88.8 Allergy status to other drugs, medicaments and biological substances

== ENCOUNTER 2020-12-09 10:40 | Emergency (ER) | payer OTHER ==
[~2020-12-09] VITALS: Ht 165.1 cm; Wt 68.0 kg
[~2020-12-09 10:40] MED LIST changes: +DOXYCYCLINE100 M3 PO
[2020-12-09] MEDS ORDERED: PROVENTIL HFA6.7 GM INH (14:33)
[2020-12-09] MEDS ORDERED: PREDNISONE20 M1 PO (14:33)
== END 2020-12-09 15:12 | disposition home or self-care (01) ==
LOC: ED 10:40
DX: U07.1 COVID-19 (principal); R11.2 Nausea with vomiting, unspecified; Z88.1 Allergy status to other antibiotic agents; Z88.6 Allergy status to analgesic agent; Z79.2 Long term (current) use of antibiotics; Z79.899 Other long term (current) drug therapy; Z90.49 Acquired absence of other specified parts of digestive tract; Z98.51 Tubal ligation status

== ENCOUNTER 2020-12-26 20:18 | Emergency (ER) | payer OTHER ==
[~2020-12-26 20:18] MED LIST changes: +PROVENTIL HFA6.7 GM INH
[2020-12-27] MEDS ORDERED: CIPRO500 MG PO (21:26)
== END 2020-12-26 21:56 | disposition left against medical advice (07) ==
LOC: ED 20:18
DX: R50.9 Fever, unspecified (principal); R10.9 Unspecified abdominal pain; Z53.21 Procedure and treatment not carried out due to patient leaving prior to being seen by health care provider

== ENCOUNTER 2020-12-27 12:20 | Emergency (ER) | payer OTHER ==
[~2020-12-27] VITALS: Ht 162.5 cm; Wt 69.9 kg
[2020-12-27 17:57] LABS: BILIRUBIN 1+ (Negative); BLOOD 1+ (Negative); CLARITY Cloudy (Clear); COLOR Dark Yellow (Yellow); GLUCOSE Negative (Negative); KETONE Trace (Negative); LEUKO ESTERASE 2+ (Negative); NITRITE Negative (Negative); SPECIFIC GRAVITY >= 1.030 (1.001-1.030)
[2020-12-27 18:09] LABS: WBC 51-100 wbc/hpf (0-5)
[2020-12-27 18:10] LABS: BACTERIA 2+; MUCOUS 1+
[2020-12-27 18:32] LABS: HEMATOCRIT 42.8 % (37.0-47.0); MEAN CELL VOLUME 97.5 fl (81.0-99.0); MEAN CORPUSCULAR HGB 32.1 pg (27.0-31.0); MEAN CORPUSCULAR HGB CONC 32.9 g/dl (33.0-37.0); MEAN PLATELET VOLUME 10.5 fl (9.6-12.3); PLATELET COUNT AUTOMATED 325 10*3/uL (130-400); RED BLOOD COUNT 4.39 10*6/uL (4.10-5.10); RED CELL DISTRI WIDTH 11.8 % (0-14.5); WHITE BLOOD COUNT 13.9 10*3/uL (4.8-10.8)
[2020-12-27 18:55] LABS: ALBUMIN 4.2 gm/dl (3.1-4.5); ALKALINE PHOSPHATASE 71 U/L (45-117); BUN 10 mg/dl (7-24); CHLORIDE 107 mmol/L (98-107); CREATININE 0.74 mg/dL (0.55-1.02); SGOT/AST 17 IU/L (3-35); SGPT/ALT 25 U/L (12-78); SODIUM 137 mmol/L (136-145); TOTAL PROTEIN 8.1 gm/dL (6.4-8.2)
[2020-12-27 19:03] LABS: ATYPICAL LYMPHS 1 % (0-0); TOTAL CELLS COUNTED 100 #CELLS
[2020-12-27 19:04] LABS: PLATELET SUFFICIENCY NORMAL (NORMAL)
[2020-12-27] MEDS ORDERED: CIPRO500 MG PO (21:26)
== END 2020-12-27 21:23 | disposition home or self-care (01) ==
LOC: ED 12:20
PROVIDERS: Emergency Medicine; Nurse Practitioner
DX: N39.0 Urinary tract infection, site not specified (principal); Z88.8 Allergy status to other drugs, medicaments and biological substances; Z88.1 Allergy status to other antibiotic agents

== ENCOUNTER 2020-12-31 10:14 | Emergency (ER) | payer OTHER ==
[~2020-12-31] VITALS: Ht 162.5 cm; Wt 69.9 kg
[2020-12-31 11:33] LABS: BILIRUBIN Negative (Negative); BLOOD 2+ (Negative); CLARITY Clear (Clear); COLOR Yellow (Yellow); GLUCOSE Negative (Negative); KETONE Negative (Negative); LEUKO ESTERASE 2+ (Negative); NITRITE Negative (Negative); PH 6.5 (4.5-8.0); UROBILINOGEN 0.2 E.U./dl (0.0-1.0)
[2020-12-31 11:58] LABS: WBC 16-20 wbc/hpf (0-5)
[2020-12-31 11:59] LABS: MUCOUS TRACE
[2020-12-31 13:14] LABS: BASO % 0.4 % (0.0-1.0); EOS % 0.7 % (1.0-4.0); HEMATOCRIT 38.7 % (37.0-47.0); LYMPH % 35.5 % (27.0-41.0); MEAN CELL VOLUME 97.2 fl (81.0-99.0); MEAN CORPUSCULAR HGB 32.4 pg (27.0-31.0); MEAN CORPUSCULAR HGB CONC 33.3 g/dl (33.0-37.0); MEAN PLATELET VOLUME 10.2 fl (9.6-12.3); MONO # 0.7 10*3/uL (0.1-1.0); NEUT # 2.9 10*3/uL (2.3-7.9); PLATELET COUNT AUTOMATED 298 10*3/uL (130-400); RED BLOOD COUNT 3.98 10*6/uL (4.10-5.10); RED CELL DISTRI WIDTH 11.6 % (0-14.5); WHITE BLOOD COUNT 5.7 10*3/uL (4.8-10.8)
[2020-12-31 13:28] LABS: ALBUMIN 3.5 gm/dl (3.1-4.5); ALKALINE PHOSPHATASE 64 U/L (45-117); BUN 7 mg/dl (7-24); CHLORIDE 110 mmol/L (98-107); CREATININE 0.73 mg/dL (0.55-1.02); POTASSIUM 4.2 mmol/L (3.5-5.1); SGOT/AST 15 IU/L (3-35); SGPT/ALT 27 U/L (12-78); SODIUM 141 mmol/L (136-145)
[2020-12-31] MEDS ORDERED: SEPTDS PO (15:52)
== END 2020-12-31 16:08 | disposition home or self-care (01) ==
LOC: ED 10:14
PROVIDERS: Emergency Medicine; Physician Assistant
DX: N39.0 Urinary tract infection, site not specified (principal); Z90.711 Acquired absence of uterus with remaining cervical stump; Z88.1 Allergy status to other antibiotic agents; Z88.6 Allergy status to analgesic agent; Z79.899 Other long term (current) drug therapy; Z79.2 Long term (current) use of antibiotics; Z90.49 Acquired absence of other specified parts of digestive tract

== ENCOUNTER 2021-10-26 15:02 | Emergency (ER) | payer OTHER ==
[~2021-10-26] VITALS: Wt 63.5 kg
[2021-10-26 15:31] LABS: BILIRUBIN Negative (Negative); BLOOD Negative (Negative); CLARITY Clear (Clear); COLOR Yellow (Yellow); GLUCOSE Negative (Negative); KETONE Negative (Negative); LEUKO ESTERASE Negative (Negative); NITRITE Negative (Negative); PH 5.5 (4.5-8.0); SPECIFIC GRAVITY 1.015 (1.001-1.030); UROBILINOGEN 0.2 E.U./dl (0.0-1.0)
[2021-10-26 16:08] LABS: BACTERIA 3+; EPITHELIAL CELLS 21-30
[2021-10-26] MEDS ORDERED: SEPTDS PO (16:10)
== END 2021-10-26 16:16 | disposition home or self-care (01) ==
LOC: ED 15:02
PROVIDERS: Physician Assistant
DX: N39.0 Urinary tract infection, site not specified (principal); Z88.1 Allergy status to other antibiotic agents; Z88.8 Allergy status to other drugs, medicaments and biological substances; Z98.51 Tubal ligation status; Z90.49 Acquired absence of other specified parts of digestive tract; F17.200 Nicotine dependence, unspecified, uncomplicated

== ENCOUNTER 2022-04-22 10:03 | Emergency (ER) | payer OTHER ==
[~2022-04-22] VITALS: Ht 162.5 cm; Wt 61.2 kg
== END 2022-04-22 11:11 | disposition home or self-care (01) ==
LOC: ED 10:03
DX: J06.9 Acute upper respiratory infection, unspecified (principal); F17.200 Nicotine dependence, unspecified, uncomplicated; Z88.1 Allergy status to other antibiotic agents; Z88.8 Allergy status to other drugs, medicaments and biological substances; Z98.51 Tubal ligation status; Z90.49 Acquired absence of other specified parts of digestive tract

== ENCOUNTER 2022-04-29 09:37 | Inpatient (IN) | payer OTHER ==
[~2022-04-29] VITALS: Wt 61.0 kg
[2022-04-29 10:33] LABS: HEMATOCRIT 39.8 % (37.0-47.0); MEAN CORPUSCULAR HGB 32.5 pg (27.0-31.0); MEAN CORPUSCULAR HGB CONC 34.2 g/dl (33.0-37.0); MEAN PLATELET VOLUME 9.8 fl (9.6-12.3); PLATELET COUNT AUTOMATED 337 10*3/uL (130-400); RED BLOOD COUNT 4.19 10*6/uL (4.10-5.10); RED CELL DISTRI WIDTH 11.8 % (0-14.5); WHITE BLOOD COUNT 22.7 10*3/uL (4.8-10.8)
[2022-04-29 10:38] LABS: MANUAL DIFF REFLEX YES
[2022-04-29 10:46] VITALS: BP 110/60
[2022-04-29 10:50] LABS: BILIRUBIN Negative (Negative); BLOOD 3+ (Negative); CLARITY Turbid (Clear); COLOR Yellow (Yellow); GLUCOSE Negative (Negative); KETONE Trace (Negative); LEUKO ESTERASE 3+ (Negative); NITRITE Positive (Negative); SPECIFIC GRAVITY 1.015 (1.001-1.030)
[2022-04-29 10:50] LABS: ALKALINE PHOSPHATASE 66 U/L (46-116); BUN 10 mg/dl (9-23); CHLORIDE 99 mmol/L (98-107); LIPASE 24 U/L (12-53); POTASSIUM 3.6 mmol/L (3.4-5.1); SGPT/ALT 20 U/L (10-49); TOTAL PROTEIN 7.2 gm/dL (6.0-8.0)
[2022-04-29 10:54] LABS: PLATELET SUFFICIENCY NORMAL (NORMAL); TOTAL CELLS COUNTED 100 #CELLS
[2022-04-29 11:34] LABS: BACTERIA 3+; EPITHELIAL CELLS TNTC; WBC TNTC wbc/hpf (0-5)
[2022-04-29 12:00] VITALS: BP 103/62
[2022-04-29 14:35] VITALS: BP 103/62
[2022-04-29 16:00] VITALS: BP 103/62
[2022-04-29 20:00] VITALS: BP 103/63
[2022-04-30] VITALS: BP 106/66
[2022-04-30 06:27] LABS: HEMATOCRIT 32.9 % (37.0-47.0); MEAN CELL VOLUME 96.5 fl (81.0-99.0); MEAN CORPUSCULAR HGB 32.8 pg (27.0-31.0); PLATELET COUNT AUTOMATED 290 10*3/uL (130-400); RED BLOOD COUNT 3.41 10*6/uL (4.10-5.10); RED CELL DISTRI WIDTH 11.7 % (0-14.5); WHITE BLOOD COUNT 14.2 10*3/uL (4.8-10.8)
[2022-04-30 06:30] LABS: MANUAL DIFF REFLEX YES
[2022-04-30 06:40] LABS: ACT PARTIAL THROMBO TIME 33.1 SECONDS (20.0-32.1)
[2022-04-30 06:52] LABS: PLATELET SUFFICIENCY NORMAL (NORMAL); POLYCHROMASIA SLIGHT; TOTAL CELLS COUNTED 100 #CELLS
[2022-04-30 06:53] LABS: OVALOCYTES FEW
[2022-04-30 06:59] LABS: ALKALINE PHOSPHATASE 105 U/L (46-116); BUN 6 mg/dl (9-23); CHLORIDE 99 mmol/L (98-107); CHOLESTEROL 89 mg/dL (<200); FREE T4 1.16 ng/dl (0.89-1.76); LDL CHOLESTEROL 27 mg/dL (9-159); POTASSIUM 3.7 mmol/L (3.4-5.1); SGPT/ALT 295 U/L (10-49); THYROID STIM HORMONE (HS) 0.803 uIU/ml (0.550-4.780); TOTAL PROTEIN 6.1 gm/dL (6.0-8.0); TRIGLYCERIDES 108 mg/dl (<150)
[2022-04-30 07:30] VITALS: BP 110/60
[2022-04-30 12:00] VITALS: BP 108/60
[2022-04-30 16:00] VITALS: BP 92/57
[2022-04-30 20:00] VITALS: BP 128/60
[2022-05-01] VITALS: BP 101/56
[2022-05-01 04:45] VITALS: BP 108/60
[2022-05-01 05:13] LABS: ALKALINE PHOSPHATASE 97 U/L (46-116); CHLORIDE 102 mmol/L (98-107); SGPT/ALT 205 U/L (10-49); TOTAL PROTEIN 6.2 gm/dL (6.0-8.0)
[2022-05-01 05:19] LABS: BUN < 5 mg/dl (9-23)
[2022-05-01 06:21] LABS: BASO % 0.2 % (0.0-1.0); EOS % 0.3 % (1.0-4.0); HEMATOCRIT 32.1 % (37.0-47.0); LYMPH # 1.4 10*3/uL (1.3-4.4); LYMPH % 16.3 % (27.0-41.0); MEAN CELL VOLUME 95.5 fl (81.0-99.0); MEAN CORPUSCULAR HGB 32.1 pg (27.0-31.0); MEAN CORPUSCULAR HGB CONC 33.6 g/dl (33.0-37.0); MEAN PLATELET VOLUME 10.8 fl (9.6-12.3); MONO # 1.2 10*3/uL (0.1-1.0); MONO % 14.3 % (3.0-9.0); NEUT % 68.6 % (47.0-73.0); PLATELET COUNT AUTOMATED 309 10*3/uL (130-400); RED BLOOD COUNT 3.36 10*6/uL (4.10-5.10); RED CELL DISTRI WIDTH 11.7 % (0-14.5); WHITE BLOOD COUNT 8.7 10*3/uL (4.8-10.8)
[2022-05-01 08:00] VITALS: BP 88/50
[2022-05-01 09:04] VITALS: BP 82/54
[2022-05-01 12:00] VITALS: BP 92/58
[2022-05-01] MEDS ORDERED: LEVOFLOXACIN750 M2 PO (12:05)
== END 2022-05-01 12:39 | disposition left against medical advice (07) | DRG 720 ==
LOC: ED 09:37 → 5E 11:34 → EDHOLD 11:34 → 5E 12:51
PROVIDERS: Family Medicine; Internal Medicine; Student in an Organized Health Care Education/Training Program; ADMIT Student in an Organized Health Care Education/Training Program; ATTEND Student in an Organized Health Care Education/Training Program
DX: A41.9 Sepsis, unspecified organism (principal); J18.9 Pneumonia, unspecified organism; E80.6 Other disorders of bilirubin metabolism; N13.6 Pyonephrosis; N12 Tubulo-interstitial nephritis, not specified as acute or chronic; E87.1 Hypo-osmolality and hyponatremia; Z53.29 Procedure and treatment not carried out because of patient's decision for other reasons; Z88.6 Allergy status to analgesic agent; Z88.8 Allergy status to other drugs, medicaments and biological substances; Z83.3 Family history of diabetes mellitus; Z82.5 Family history of asthma and other chronic lower respiratory diseases; Z82.49 Family history of ischemic heart disease and other diseases of the circulatory system; Z87.891 Personal history of nicotine dependence

== ENCOUNTER 2022-06-07 21:14 | Emergency (ER) | payer OTHER ==
[~2022-06-07] VITALS: Ht 162.5 cm; Wt 61.2 kg
[~2022-06-07 21:14] MED LIST changes: +LEVOFLOXACIN750 M2 PO
[2022-06-07 22:24] LABS: BASO # 0.1 10*3/uL (0.0-0.1); BASO % 0.6 % (0.0-1.0); EOS # 0.1 10*3/uL (0.0-0.4); EOS % 0.9 % (1.0-4.0); HEMATOCRIT 37.2 % (37.0-47.0); LYMPH # 2.7 10*3/uL (1.3-4.4); LYMPH % 31.2 % (27.0-41.0); MEAN CELL VOLUME 98.9 fl (81.0-99.0); MEAN CORPUSCULAR HGB 32.4 pg (27.0-31.0); MEAN CORPUSCULAR HGB CONC 32.8 g/dl (33.0-37.0); MEAN PLATELET VOLUME 10.2 fl (9.6-12.3); MONO # 0.8 10*3/uL (0.1-1.0); MONO % 9.2 % (3.0-9.0); NEUT % 57.9 % (47.0-73.0); PLATELET COUNT AUTOMATED 342 10*3/uL (130-400); RED BLOOD COUNT 3.76 10*6/uL (4.10-5.10); RED CELL DISTRI WIDTH 12.1 % (0-14.5); WHITE BLOOD COUNT 8.7 10*3/uL (4.8-10.8)
[2022-06-07 22:24] LABS: BILIRUBIN Negative (Negative); BLOOD Negative (Negative); CLARITY Cloudy (Clear); COLOR Yellow (Yellow); GLUCOSE Negative (Negative); KETONE Negative (Negative); LEUKO ESTERASE Negative (Negative); NITRITE Negative (Negative); PH 7.5 (4.5-8.0); SPECIFIC GRAVITY 1.015 (1.001-1.030); UROBILINOGEN 0.2 E.U./dl (0.0-1.0)
[2022-06-07 22:38] LABS: EPITHELIAL CELLS 41-50; WBC 0-2 wbc/hpf (0-5)
[2022-06-07 22:38] LABS: ALKALINE PHOSPHATASE 49 U/L (46-116); BUN 13 mg/dl (9-23); CHLORIDE 105 mmol/L (98-107); LIPASE 37 U/L (12-53); POTASSIUM 4.1 mmol/L (3.4-5.1); SGPT/ALT 15 U/L (10-49); TOTAL PROTEIN 6.5 gm/dL (6.0-8.0)
[2022-06-08] MEDS ORDERED: PERCOCET 5-3251 EACH PO (00:43)
== END 2022-06-08 01:28 | disposition home or self-care (01) ==
LOC: ED 21:14
PROVIDERS: Emergency Medicine
DX: R10.31 Right lower quadrant pain (principal); R10.32 Left lower quadrant pain; Z88.8 Allergy status to other drugs, medicaments and biological substances; Z88.5 Allergy status to narcotic agent; Z90.49 Acquired absence of other specified parts of digestive tract; Z98.51 Tubal ligation status; Z87.891 Personal history of nicotine dependence

== ENCOUNTER → 2022-06-08 | Outpatient (CLI) | payer OTHER | END | disposition home or self-care (01) | LOC: US 15:08 | PROVIDERS: ATTEND Emergency Medicine | DX: R10.30 Lower abdominal pain, unspecified (principal) ==

== ENCOUNTER 2022-06-22 14:20 | Emergency (ER) | payer OTHER ==
[~2022-06-22] VITALS: Wt 63.5 kg
[2022-06-22 19:05] LABS: BASO % 0.4 % (0.0-1.0); EOS # 0.1 10*3/uL (0.0-0.4); EOS % 0.6 % (1.0-4.0); HEMATOCRIT 39.5 % (37.0-47.0); LYMPH # 2.4 10*3/uL (1.3-4.4); LYMPH % 21.5 % (27.0-41.0); MEAN CELL VOLUME 98.5 fl (81.0-99.0); MEAN CORPUSCULAR HGB 32.4 pg (27.0-31.0); MEAN CORPUSCULAR HGB CONC 32.9 g/dl (33.0-37.0); MEAN PLATELET VOLUME 10.2 fl (9.6-12.3); MONO # 0.8 10*3/uL (0.1-1.0); MONO % 6.8 % (3.0-9.0); NEUT # 7.9 10*3/uL (2.3-7.9); NEUT % 70.3 % (47.0-73.0); PLATELET COUNT AUTOMATED 337 10*3/uL (130-400); RED BLOOD COUNT 4.01 10*6/uL (4.10-5.10); RED CELL DISTRI WIDTH 12.1 % (0-14.5); WHITE BLOOD COUNT 11.2 10*3/uL (4.8-10.8)
[2022-06-22 19:31] LABS: BILIRUBIN 1+ (Negative); BLOOD Negative (Negative); CLARITY Cloudy (Clear); GLUCOSE Negative (Negative); KETONE Negative (Negative); LEUKO ESTERASE Trace (Negative); NITRITE Positive (Negative); PH 5.5 (4.5-8.0); SPECIFIC GRAVITY >= 1.030 (1.001-1.030)
[2022-06-22 19:43] LABS: ALKALINE PHOSPHATASE 64 U/L (46-116); BUN 11 mg/dl (9-23); CHLORIDE 107 mmol/L (98-107); POTASSIUM 3.9 mmol/L (3.4-5.1); SGPT/ALT 163 U/L (10-49)
[2022-06-22 19:55] LABS: B-hCG (QUALITATIVE) NEGATIVE (NEGATIVE)
[2022-06-22 20:55] LABS: COLOR Orange (Yellow)
[2022-06-22 20:56] LABS: RBC 0-2 rbc/hpf (0-2)
[2022-06-22 20:57] LABS: BACTERIA TRACE; EPITHELIAL CELLS 21-30
[2022-06-22] MEDS ORDERED: ONDANSETRON4 MG SL (22:11)
[2022-06-22] MEDS ORDERED: MACROBID100 M1 PO (22:11)
== END 2022-06-22 22:44 | disposition home or self-care (01) ==
LOC: ED 14:20
PROVIDERS: Physician Assistant
DX: N39.0 Urinary tract infection, site not specified (principal); R74.01 Elevation of levels of liver transaminase levels; Z90.49 Acquired absence of other specified parts of digestive tract; Z88.1 Allergy status to other antibiotic agents; Z88.8 Allergy status to other drugs, medicaments and biological substances; Z98.51 Tubal ligation status; F17.200 Nicotine dependence, unspecified, uncomplicated

== ENCOUNTER 2022-11-03 16:48 | Emergency (ER) | payer OTHER ==
[~2022-11-03] VITALS: Ht 165.1 cm; Wt 61.2 kg
[~2022-11-03 16:48] MED LIST changes: +ONDANSETRON4 MG SL
[2022-11-03 17:03] LABS: BILIRUBIN Negative (Negative); BLOOD 2+ (Negative); CLARITY Turbid (Clear); COLOR Yellow (Yellow); GLUCOSE Negative (Negative); KETONE Negative (Negative); LEUKO ESTERASE 3+ (Negative); NITRITE Negative (Negative); PH 6.5 (4.5-8.0); SPECIFIC GRAVITY 1.025 (1.001-1.030)
[2022-11-03 17:18] LABS: BACTERIA 3+; WBC TNTC wbc/hpf (0-5)
[2022-11-03 17:26] LABS: BASO % 0.4 % (0.0-1.0); EOS # 0.1 10*3/uL (0.0-0.4); EOS % 0.9 % (1.0-4.0); HEMATOCRIT 35.4 % (37.0-47.0); LYMPH # 2.9 10*3/uL (1.3-4.4); LYMPH % 30.7 % (27.0-41.0); MEAN CELL VOLUME 95.7 fl (81.0-99.0); MEAN CORPUSCULAR HGB CONC 34.5 g/dl (33.0-37.0); MEAN PLATELET VOLUME 9.9 fl (9.6-12.3); MONO # 0.7 10*3/uL (0.1-1.0); MONO % 7.2 % (3.0-9.0); NEUT # 5.8 10*3/uL (2.3-7.9); NEUT % 60.5 % (47.0-73.0); PLATELET COUNT AUTOMATED 387 10*3/uL (130-400); RED CELL DISTRI WIDTH 11.9 % (0-14.5); WHITE BLOOD COUNT 9.6 10*3/uL (4.8-10.8)
[2022-11-03 17:48] LABS: ALKALINE PHOSPHATASE 53 U/L (46-116); BUN 11 mg/dl (9-23); CHLORIDE 109 mmol/L (98-107); LIPASE 29 U/L (12-53); POTASSIUM 3.2 mmol/L (3.4-5.1); SGPT/ALT 13 U/L (10-49); TOTAL PROTEIN 6.4 gm/dL (6.0-8.0)
[2022-11-03 17:50] LABS: BETA-HCG, QUANT < 3.0 mIU/mL (3-10)
[2022-11-03] MEDS ORDERED: SEPTDS PO (18:37)
== END 2022-11-03 18:52 | disposition home or self-care (01) ==
LOC: ED 16:48
PROVIDERS: Emergency Medicine; Physician Assistant Medical
DX: N39.0 Urinary tract infection, site not specified (principal); D64.9 Anemia, unspecified; Z88.5 Allergy status to narcotic agent; Z88.8 Allergy status to other drugs, medicaments and biological substances; Z90.49 Acquired absence of other specified parts of digestive tract; Z98.51 Tubal ligation status; Z98.890 Other specified postprocedural states; Z87.891 Personal history of nicotine dependence

== ENCOUNTER 2023-01-12 08:56 | Emergency (ER) | payer OTHER ==
[~2023-01-12] VITALS: Ht 165.1 cm; Wt 61.2 kg
[2023-01-12] MEDS ORDERED: PREDNISONE50 MG PO (09:31)
[2023-01-12] MEDS ORDERED: CYCLOBENZAPRINE10 MG PO (09:31)
== END 2023-01-12 09:35 | disposition home or self-care (01) ==
LOC: ED 08:56
DX: M54.41 Lumbago with sciatica, right side (principal); M25.551 Pain in right hip; D64.9 Anemia, unspecified; Z88.5 Allergy status to narcotic agent; Z88.8 Allergy status to other drugs, medicaments and biological substances; Z90.49 Acquired absence of other specified parts of digestive tract; Z98.51 Tubal ligation status; Z98.890 Other specified postprocedural states

== ENCOUNTER 2023-03-09 09:57 | Emergency (ER) | payer OTHER ==
[~2023-03-09] VITALS: Wt 63.5 kg
[~2023-03-09 09:57] MED LIST changes: +PREDNISONE50 MG PO
== END 2023-03-09 11:15 | disposition left against medical advice (07) ==
LOC: ED 09:57
DX: R10.9 Unspecified abdominal pain (principal); R11.0 Nausea; Z88.8 Allergy status to other drugs, medicaments and biological substances; Z53.21 Procedure and treatment not carried out due to patient leaving prior to being seen by health care provider

== ENCOUNTER 2023-03-10 08:00 | Emergency (ER) | payer OTHER ==
[~2023-03-10] VITALS: Ht 165.1 cm; Wt 65.8 kg
[2023-03-10 10:44] LABS: BASO # 0.1 10*3/uL (0.0-0.1); BASO % 0.4 % (0.0-1.0); EOS # 0.1 10*3/uL (0.0-0.4); EOS % 0.6 % (1.0-4.0); HEMATOCRIT 40.7 % (37.0-47.0); LYMPH # 2.8 10*3/uL (1.3-4.4); LYMPH % 23.9 % (27.0-41.0); MEAN CELL VOLUME 95.5 fl (81.0-99.0); MEAN CORPUSCULAR HGB 32.4 pg (27.0-31.0); MEAN CORPUSCULAR HGB CONC 33.9 g/dl (33.0-37.0); MEAN PLATELET VOLUME 9.8 fl (9.6-12.3); MONO # 0.8 10*3/uL (0.1-1.0); MONO % 6.6 % (3.0-9.0); NEUT # 7.9 10*3/uL (2.3-7.9); NEUT % 68.1 % (47.0-73.0); PLATELET COUNT AUTOMATED 352 10*3/uL (130-400); RED BLOOD COUNT 4.26 10*6/uL (4.10-5.10); WHITE BLOOD COUNT 11.6 10*3/uL (4.8-10.8)
[2023-03-10 11:08] LABS: ALKALINE PHOSPHATASE 44 U/L (46-116); BUN 9 mg/dl (9-23); CHLORIDE 107 mmol/L (98-107); LIPASE 33 U/L (12-53); POTASSIUM 4.2 mmol/L (3.4-5.1); SGPT/ALT 14 U/L (5-49); TOTAL PROTEIN 7.1 gm/dL (6.0-8.0)
[2023-03-10 11:11] LABS: BETA-HCG, QUANT < 3.0 mIU/mL (3-10)
[2023-03-10 11:22] LABS: BILIRUBIN Negative (Negative); BLOOD Negative (Negative); CLARITY Clear (Clear); COLOR Yellow (Yellow); GLUCOSE Negative (Negative); KETONE Negative (Negative); LEUKO ESTERASE Trace (Negative); NITRITE Negative (Negative); SPECIFIC GRAVITY <= 1.005 (1.001-1.030); UROBILINOGEN 0.2 E.U./dl (0.0-1.0)
== END 2023-03-10 13:30 | disposition home or self-care (01) ==
LOC: ED 08:00
PROVIDERS: Emergency Medicine
DX: R10.31 Right lower quadrant pain (principal); R10.2 Pelvic and perineal pain; D64.9 Anemia, unspecified; Z88.8 Allergy status to other drugs, medicaments and biological substances; Z88.5 Allergy status to narcotic agent; Z90.49 Acquired absence of other specified parts of digestive tract; Z98.51 Tubal ligation status; Z98.890 Other specified postprocedural states

== ENCOUNTER → 2023-07-21 | Outpatient (CLI) | payer SELFPAY ==
[2023-07-21 09:21] LABS: HEMATOCRIT 41.2 % (37.0-47.0); MEAN CORPUSCULAR HGB 31.9 pg (27.0-31.0); MEAN CORPUSCULAR HGB CONC 33.3 g/dl (33.0-37.0); RED BLOOD COUNT 4.29 10*6/uL (4.10-5.10); RED CELL DISTRI WIDTH 12.8 % (0-14.5); WHITE BLOOD COUNT 7.5 10*3/uL (4.8-10.8)
== END | disposition home or self-care (01) ==
LOC: LAB 08:46
PROVIDERS: ATTEND Obstetrics & Gynecology
DX: Z13.0 Encounter for screening for diseases of the blood and blood-forming organs and certain disorders involving the immune mechanism (principal)

== ENCOUNTER 2023-08-18 14:37 | Emergency (ER) | payer SELFPAY ==
[~2023-08-18] VITALS: Wt 63.5 kg
[2023-08-18] MEDS ORDERED: Rabies Vaccine 1 ML VIAL IM ONE (15:40)
[2023-08-18] MEDS ORDERED: Rabies Immune Globulin 300 UNIT/2 ML VIAL IM ONE (15:40)
[2023-08-18] MEDS ORDERED: Rabies Immune Globulin 150O UNIT/10 ML IM ONE (15:45)
[2023-08-18] MEDS ORDERED: AMOX-CLAV 875-1 EACH PO (15:46)
== END 2023-08-18 16:18 | disposition home or self-care (01) ==
LOC: ED 14:37
DX: S01.85XA Open bite of other part of head, initial encounter (principal); Z88.1 Allergy status to other antibiotic agents; Z88.6 Allergy status to analgesic agent; Z79.899 Other long term (current) drug therapy; Z90.49 Acquired absence of other specified parts of digestive tract; Z98.51 Tubal ligation status; Z87.891 Personal history of nicotine dependence; W54.0XXA Bitten by dog, initial encounter; Y93.89 Activity, other specified; Y92.89 Other specified places as the place of occurrence of the external cause; Y99.8 Other external cause status

== ENCOUNTER 2024-02-12 05:03 | Emergency (ER) | payer SELFPAY ==
[~2024-02-12 05:03] MED LIST changes: +AMOX-CLAV 875-1 EACH PO
[2024-02-12 05:49] LABS: BUN 12 mg/dl (9-23); CHLORIDE 104 mmol/L (98-107); ETHYL ALCOHOL 249.8 mg/dl (<3); POTASSIUM 4.3 mmol/L (3.4-5.1)
[2024-02-12 06:07] LABS: BASO # 0.1 10*3/uL (0.0-0.1); BASO % 0.5 % (0.0-1.0); EOS % 0.3 % (1.0-4.0); HEMATOCRIT 40.3 % (37.0-47.0); LYMPH # 2.5 10*3/uL (1.3-4.4); LYMPH % 22.6 % (27.0-41.0); MEAN CELL VOLUME 93.3 fl (81.0-99.0); MEAN CORPUSCULAR HGB 32.2 pg (27.0-31.0); MEAN CORPUSCULAR HGB CONC 34.5 g/dl (33.0-37.0); MEAN PLATELET VOLUME 10.2 fl (9.6-12.3); MONO # 0.5 10*3/uL (0.1-1.0); MONO % 4.8 % (3.0-9.0); NEUT # 7.8 10*3/uL (2.3-7.9); NEUT % 71.4 % (47.0-73.0); PLATELET COUNT AUTOMATED 441 10*3/uL (130-400); RED BLOOD COUNT 4.32 10*6/uL (4.10-5.10); RED CELL DISTRI WIDTH 11.9 % (0-14.5); WHITE BLOOD COUNT 10.9 10*3/uL (4.8-10.8)
[2024-02-12 12:05] LABS: URINE AMPHETAMINES Negative (1000ng/ml); URINE BARBITURATES Negative (200ng/ml); URINE BENZODIAZEPINES Negative (200ng/ml); URINE CANNABINOIDS (THC) Negative (50ng/ml); URINE COCAINE Negative (300ng/ml); URINE METHADONE Negative (300ng/ml); URINE OPIATES Negative (300ng/ml); URINE PHENCYCLIDINE Negative (25ng/ml)
== END 2024-02-12 13:00 | disposition home or self-care (01) ==
LOC: ED 05:03
PROVIDERS: Internal Medicine
DX: F10.129 Alcohol abuse with intoxication, unspecified (principal); Z88.1 Allergy status to other antibiotic agents; Z88.6 Allergy status to analgesic agent; Z79.2 Long term (current) use of antibiotics; Z79.899 Other long term (current) drug therapy; Z90.49 Acquired absence of other specified parts of digestive tract; Z98.51 Tubal ligation status; Y90.8 Blood alcohol level of 240 mg/100 ml or more

== ENCOUNTER 2024-06-06 12:19 | Inpatient (IN) | payer SELFPAY ==
[~2024-06-06] VITALS: Ht 165.1 cm; Wt 59.0 kg
[2024-06-06 12:42] VITALS: BP 119/72
[2024-06-06] MEDS ORDERED: SODIUM CHLORIDE 0.9% 1,000 ML IV ONE ×3 (13:55→18:35)
[2024-06-06] MEDS ORDERED: IOHEXOL 300 MG/ML 100 ML VIAL IV ONE (13:55)
[2024-06-06 14:01] LABS: HEMATOCRIT 36.2 % (37.0-47.0); MEAN CELL VOLUME 97.6 fl (81.0-99.0); MEAN CORPUSCULAR HGB 33.2 pg (27.0-31.0); MEAN PLATELET VOLUME 9.8 fl (9.6-12.3); PLATELET COUNT AUTOMATED 320 10*3/uL (130-400); RED BLOOD COUNT 3.71 10*6/uL (4.10-5.10); RED CELL DISTRI WIDTH 12.1 % (0-14.5); WHITE BLOOD COUNT 17.5 10*3/uL (4.8-10.8)
[2024-06-06 14:04] LABS: MANUAL DIFF REFLEX YES
[2024-06-06 14:14] LABS: ACT PARTIAL THROMBO TIME 25.9 SECONDS (20.0-32.1)
[2024-06-06 14:23] LABS: PLATELET SUFFICIENCY NORMAL (NORMAL); TOTAL CELLS COUNTED 100 #CELLS
[2024-06-06 14:24] LABS: ALKALINE PHOSPHATASE 53 U/L (46-116); BUN 13 mg/dl (9-23); CHLORIDE 104 mmol/L (98-107); POTASSIUM 3.4 mmol/L (3.4-5.1); SGPT/ALT 14 U/L (5-49); TARGET CELLS FEW; TOTAL PROTEIN 6.8 gm/dL (6.0-8.0)
[2024-06-06 14:37] LABS: BILIRUBIN Negative (Negative); BLOOD Trace-Lysed (Negative); CLARITY Clear (Clear); COLOR Yellow (Yellow); GLUCOSE Negative (Negative); KETONE Negative (Negative); LEUKO ESTERASE 2+ (Negative); NITRITE Negative (Negative); SPECIFIC GRAVITY 1.015 (1.001-1.030); UROBILINOGEN 0.2 E.U./dl (0.0-1.0)
[2024-06-06 14:44] LABS: URINE AMPHETAMINES Negative (1000ng/ml); URINE BARBITURATES Negative (200ng/ml); URINE BENZODIAZEPINES Negative (200ng/ml); URINE CANNABINOIDS (THC) Negative (50ng/ml); URINE COCAINE Negative (300ng/ml); URINE METHADONE Negative (300ng/ml); URINE OPIATES Negative (300ng/ml); URINE PHENCYCLIDINE Negative (25ng/ml)
[2024-06-06 14:48] LABS: BACTERIA 2+; MUCOUS 1+; WBC 31-40 wbc/hpf (0-5)
[2024-06-06] MEDS ORDERED: metroNIDAZOLE 100 ML IV ONE (14:55)
[2024-06-06] MEDS ORDERED: CIPROFLOXACIN 200 ML IV ONE (14:55)
[2024-06-06] MEDS ORDERED: ACETAMINOPHEN 100 ML IV ONE (14:55)
[2024-06-06] MEDS ORDERED: BISACODYL 5 MG TAB PO PRN (18:25)
[2024-06-06] MEDS ORDERED: Magnesium Hydroxide 30 ML UDC PO PRN (18:25)
[2024-06-06] MEDS ORDERED: BISACODYL 10 MG SUPP R PRN (18:25)
[2024-06-06] MEDS ORDERED: TEMAZEPAM 15 MG CAP PO PRN (18:25)
[2024-06-06] MEDS ORDERED: Ondansetron Hydrochloride 4 MG/2 ML VIAL IV PRN (18:25)
[2024-06-06] MEDS ORDERED: metroNIDAZOLE 100 ML IV SCH (22:00)
[2024-06-07] MEDS ORDERED: CIPROFLOXACIN 200 ML IV SCH (04:00)
[2024-06-07] MEDS ORDERED: Pantoprazole Sodium 40 MG VIAL IV SCH (06:00)
[2024-06-07] MEDS ORDERED: Enoxaparin Sodium 40 MG/0.4 ML SYR SC SCH (10:00)
== END 2024-06-06 20:23 | disposition left against medical advice (07) | DRG 872 ==
LOC: ED 12:19 → EDHOLD 18:10
PROVIDERS: Internal Medicine; ADMIT Internal Medicine; ATTEND Internal Medicine
DX: A41.9 Sepsis, unspecified organism (principal); N30.00 Acute cystitis without hematuria; K52.9 Noninfective gastroenteritis and colitis, unspecified; R73.9 Hyperglycemia, unspecified; Z53.29 Procedure and treatment not carried out because of patient's decision for other reasons; Z90.49 Acquired absence of other specified parts of digestive tract; Z98.51 Tubal ligation status; Z87.440 Personal history of urinary (tract) infections; Z88.8 Allergy status to other drugs, medicaments and biological substances; Z82.49 Family history of ischemic heart disease and other diseases of the circulatory system; Z83.3 Family history of diabetes mellitus; Z83.6 Family history of other diseases of the respiratory system; Z88.6 Allergy status to analgesic agent

== ENCOUNTER 2025-01-02 11:02 | Inpatient (IN) | payer SELFPAY ==
[~2025-01-02] VITALS: Ht 165.1 cm; Wt 62.2 kg
[2025-01-02 11:23] VITALS: BP 115/74
[2025-01-02] MEDS ORDERED: Ondansetron Hydrochloride 4 MG/2 ML VIAL IV ONE (12:20)
[2025-01-02] MEDS ORDERED: SODIUM CHLORIDE 0.9% 1,000 ML IV ONE ×3 (12:20→23:25)
[2025-01-02 12:53] LABS: BILIRUBIN Negative (Negative); BLOOD 2+ (Negative); CLARITY Cloudy (Clear); COLOR Yellow (Yellow); KETONE 2+ (Negative); LEUKO ESTERASE 3+ (Negative); NITRITE Positive (Negative); PH 6.0 (4.5-8.0); SPECIFIC GRAVITY 1.015 (1.001-1.030); UROBILINOGEN 1.0 E.U./dl (0.0-1.0)
[2025-01-02 12:58] LABS: MEAN CELL VOLUME 96.1 fl (81.0-99.0); MEAN CORPUSCULAR HGB 32.4 pg (27.0-31.0); MEAN PLATELET VOLUME 9.7 fl (9.6-12.3); NUCLEATED RED BLOOD CELL 0.0 % (0.0-0.0); NUCLEATED RED BLOOD CELL 0.0 10*3/uL (0.0-0.0); PLATELET COUNT AUTOMATED 336 10*3/uL (130-400); RED CELL DISTRI WIDTH 11.0 % (0-14.5)
[2025-01-02 12:59] LABS: MANUAL DIFF REFLEX YES
[2025-01-02 13:16] LABS: BUN 8 mg/dl (9-23)
[2025-01-02 13:18] LABS: PLATELET SUFFICIENCY NORMAL (NORMAL)
[2025-01-02] MEDS ORDERED: Ondansetron Hydrochloride 4 MG TAB SL ONE (13:20)
[2025-01-02 13:34] LABS: WBC TNTC wbc/hpf (0-5)
[2025-01-02 13:35] LABS: BACTERIA 4+; EPITHELIAL CELLS 16-20; RBC 21-30 rbc/hpf (0-2)
[2025-01-02] MEDS ORDERED: CIPROFLOXACIN 200 ML IV ONE (14:45)
[2025-01-02 16:32] VITALS: BP 110/73
[2025-01-02] MEDS ORDERED: ACETAMINOPHEN 650 MG SUPP R PRN (17:25)
[2025-01-02] MEDS ORDERED: BISACODYL 5 MG TAB PO PRN (17:25)
[2025-01-02] MEDS ORDERED: BISACODYL 10 MG SUPP R PRN (17:25)
[2025-01-02] MEDS ORDERED: ACETAMINOPHEN 325 MG TAB PO PRN (17:25)
[2025-01-02] MEDS ORDERED: Ondansetron Hydrochloride 4 MG/2 ML VIAL IV PRN (17:25)
[2025-01-02 20:48] VITALS: BP 103/62
[2025-01-02 21:05] VITALS: BP 117/64
[2025-01-02] MEDS ORDERED: CIPROFLOXACIN 200 ML IV SCH (22:00)
[2025-01-02] MEDS ORDERED: SODIUM CHLORIDE 0.9% 1,000 ML IV SCH (23:25)
[2025-01-03] VITALS (8 sets, daily range): BP systolic 94–140; BP diastolic 55–68
[2025-01-03] MEDS ORDERED: CIPROFLOXACIN 200 ML IV SCH
[2025-01-03 06:31] LABS: BASO # 0.0 10*3/uL (0.0-0.1); BASO % 0.2 % (0.0-1.0); EOS # 0.0 10*3/uL (0.0-0.4); EOS % 0.4 % (1.0-4.0); MEAN CELL VOLUME 96.3 fl (81.0-99.0); MEAN CORPUSCULAR HGB 32.6 pg (27.0-31.0); MEAN PLATELET VOLUME 9.6 fl (9.6-12.3); MONO # 1.1 10*3/uL (0.1-1.0); MONO % 13.9 % (3.0-9.0); NEUT # 5.9 10*3/uL (2.3-7.9); NEUT % 71.8 % (47.0-73.0); NUCLEATED RED BLOOD CELL 0.0 % (0.0-0.0); NUCLEATED RED BLOOD CELL 0.0 10*3/uL (0.0-0.0); PLATELET COUNT AUTOMATED 255 10*3/uL (130-400); RED CELL DISTRI WIDTH 11.1 % (0-14.5)
[2025-01-03 07:18] LABS: BUN 7 mg/dl (9-23); FREE T4 1.39 ng/dl (0.89-1.76); LDL CHOLESTEROL 35 mg/dL (9-159)
[2025-01-03 07:34] LABS: VITAMIN D, 25-HYDROXY 28.1 ng/mL (30-100)
[2025-01-03] MEDS ORDERED: SODIUM CHLORIDE 0.9% 1,000 ML IV ONE ×2 (13:10→23:40)
[2025-01-04] VITALS: BP 102/68; BP 92/54
[2025-01-04 12:00] VITALS: BP 103/48
[2025-01-04 16:00] VITALS: BP 97/66
[2025-01-04 20:00] VITALS: BP 109/72
[2025-01-05] VITALS: BP 115/63
[2025-01-05 06:26] LABS: BASO # 0.0 10*3/uL (0.0-0.1); BASO % 0.3 % (0.0-1.0); EOS # 0.2 10*3/uL (0.0-0.4); EOS % 2.1 % (1.0-4.0); MEAN CELL VOLUME 98.0 fl (81.0-99.0); MEAN CORPUSCULAR HGB 32.4 pg (27.0-31.0); MEAN PLATELET VOLUME 9.9 fl (9.6-12.3); MONO # 0.7 10*3/uL (0.1-1.0); MONO % 9.7 % (3.0-9.0); NEUT # 4.1 10*3/uL (2.3-7.9); NEUT % 57.4 % (47.0-73.0); NUCLEATED RED BLOOD CELL 0.0 % (0.0-0.0); NUCLEATED RED BLOOD CELL 0.0 10*3/uL (0.0-0.0); RED CELL DISTRI WIDTH 11.3 % (0-14.5)
[2025-01-05 06:37] LABS: PLATELET COUNT AUTOMATED 335 10*3/uL (130-400)
[2025-01-05 06:42] LABS: BUN 5 mg/dl (9-23)
[2025-01-05 08:00] VITALS: BP 108/59
[2025-01-05] MEDS ORDERED: CIPRO500 MG PO (09:55)
== END 2025-01-05 11:45 | disposition home or self-care (01) | DRG 690 ==
LOC: ED 11:02 → 5E 14:49 → EDHOLD 14:49 → 5E 19:45
PROVIDERS: Emergency Medicine; Student in an Organized Health Care Education/Training Program; ADMIT Internal Medicine; ATTEND Internal Medicine
DX: N10 Acute pyelonephritis (principal); E87.1 Hypo-osmolality and hyponatremia; R65.10 Systemic inflammatory response syndrome (SIRS) of non-infectious origin without acute organ dysfunction; J90 Pleural effusion, not elsewhere classified; D72.828 Other elevated white blood cell count; R16.0 Hepatomegaly, not elsewhere classified; F17.210 Nicotine dependence, cigarettes, uncomplicated; B96.20 Unspecified Escherichia coli [E. coli] as the cause of diseases classified elsewhere; R82.71 Bacteriuria; Z88.8 Allergy status to other drugs, medicaments and biological substances; Z91.09 Other allergy status, other than to drugs and biological substances; Z90.49 Acquired absence of other specified parts of digestive tract; Z83.3 Family history of diabetes mellitus; Z71.6 Tobacco abuse counseling; Z82.5 Family history of asthma and other chronic lower respiratory diseases; Z82.49 Family history of ischemic heart disease and other diseases of the circulatory system